=== PATIENT | female | born 1960 | race Hispanic/Latino ===

== ENCOUNTER 2017-11-28 12:31 | Outpatient (CLI) | payer OTHER ==
--- NOTE | 2017-11-28 13:15 | XRay Report ---
CHEST 2 VIEWS INDICATION: Chest pain. COMPARISON: None similar at this institution. FINDINGS: PA and lateral chest radiographs demonstrate normal cardiomediastinal silhouette. Clear lungs. Multilevel thoracic spine degenerative spurring and lower cervical fusion hardware. Probable cholecystectomy clips. CONCLUSION: No acute chest process with other findings, as above. Thank you for the opportunity to participate in this patient's care.
--- NOTE | 2017-11-28 14:05 | XRay Report ---
RIB RADIOGRAPHS UNILATERAL - LEFT INDICATION: Intercostal pain. COMPARISON: None similar. FINDINGS: AP and oblique radiographs to evaluate left ribs, 3 projections demonstrate no definite or significantly displaced left rib fracture. Probable cholecystectomy clips. Lower cervical fusion hardware. Mild multilevel thoracic spine degenerative spurring. Mild dextroscoliosis apex about T7 as well. CONCLUSION: No acute left rib radiographic abnormality with various other findings, as described. Please note that some acute rib fractures may be radiographically occult. Thank you for the opportunity to participate in this patient's care.
== END 2017-11-28 12:32 | disposition home or self-care (01) ==
LOC: XRAY 12:31
PROVIDERS: ATTEND Internal Medicine
DX: R07.82 Intercostal pain (principal); R07.9 Chest pain, unspecified; M41.84 Other forms of scoliosis, thoracic region; M43.22 Fusion of spine, cervical region; M53.84 Other specified dorsopathies, thoracic region
CPT/HCPCS: 71046

== ENCOUNTER 2017-12-12 10:28 | Outpatient (CLI) | payer OTHER ==
--- NOTE | 2017-12-12 16:08 | Mammography Report ---
BONE DEXA:12/12/17 10:28:00 CLINICAL: Postmenopausal. No comparison. TECHNIQUE: Two site bone DEXA performed on an Hologic scanner. FINDINGS: The average BMD of the lumbar spine L1-L4 is 0.970g/cm squared with a T-score of by 0.7 and a Z-score of +0.6. The average BMD of the left hip is 1.160g/cm squared with a T-score of +1.8 and a Z-score of +2.6. IMPRESSION: WHO classification: Normal with average fracture risk based on both lumbar spine and left hip measurements. RECOMMENDATION: Clinical correlation and routine screening. DEFINITIONS: BMD = Bone Mineral Density T-score = BMD related to mean peak bone mass of young adult (mean expressed in Standard Deviation) Z-score = Age matched BMD expressed in SD World Health Organization (WHO) Diagnostic Criteria Normal T-score > -1 SD Osteopenia T-score between -1 and -2.4 SD Osteoporosis T-score -2.5 SD or below NOTE: BMD is not the only risk factor for fracture. One should also consider factors such as the patient's age, risk of falling, previous osteoporotic fracture, family history of osteoporotic fractures, current smoker, and low body weight. Z-scores are not calculated if >80 years of age.
--- NOTE | 2017-12-12 16:19 | Mammography Report ---
BILATERAL DIGITAL SCREENING MAMMOGRAM with CAD: 12/12/17 10:28:00 CLINICAL: Routine screening. COMPARISON:None available. FINDINGS: The breasts are almost entirely fatty. No mass, architectural distortion or suspicious calcifications. IMPRESSION: No mammographic evidence of malignancy. BI-RADS CATEGORY: 1 - - Negative RECOMMENDATION: Routine mammographic screening in one year. COMMENT: Patient follow-up letters are generated by our [employer] application.
== END 2017-12-12 10:29 | disposition home or self-care (01) ==
LOC: MAMMO 10:28
PROVIDERS: ATTEND Internal Medicine
DX: Z12.31 Encounter for screening mammogram for malignant neoplasm of breast (principal); M81.8 Other osteoporosis without current pathological fracture; Z78.0 Asymptomatic menopausal state
CPT/HCPCS: 77067; 77080

== ENCOUNTER 2018-07-25 15:02 | Emergency (ER) | payer OTHER ==
[2018-07-25 16:59] LABS: Basophils % (Auto) 0.8 % (0.0-1.8); Eosinophils # (Auto) 0.1 K/mm3 (0.0-0.4); Eosinophils % (Auto) 1.9 % (0.0-4.3); Hematocrit 39.9 % (30.3-42.9); Hemoglobin 13.5 gm/dl (10.1-14.3); Lymphocytes # (Auto) 2.5 K/mm3 (1.2-5.4); Mean Corpuscular HGB Conc 34 % (30-34); Mean Corpuscular Hemoglobin 30 pg (28-32); Mean Corpuscular Volume 89 fl (79-97); Monocytes # (Auto) 0.4 K/mm3 (0.0-0.8); Monocytes % (Auto) 6.3 % (0.0-7.3); Platelet Count 344 K/mm3 (140-440); Red Blood Count 4.48 M/mm3 (3.65-5.03); Red Cell Distribution Width 13.4 % (13.2-15.2)
[2018-07-25 17:07] LABS: BUN/Creatinine Ratio 23; Blood Urea Nitrogen 18 mg/dL (7-17); Calcium 9.7 mg/dL (8.4-10.2); Hemolysis Index 6
[2018-07-25] MEDS ORDERED: MORPHINE IV ONE (18:29)
--- NOTE | 2018-07-25 18:36 | Emergency Department Report ---
Blank Doc - Documentation Documentation: 57-year-old female presents to ER with right-sided chest pain since yesterday. Patient states has been having pain in his left leg for several weeks now. He was given a prescription for tramadol for pain by PCP without improvement of pain. He states began having back pain that wraps around right chest on yesterday. Reports pleuritic pain and mild shortness of breath. Patient has not had ultrasound of lower extremity. Patient does not appear to be in any distress. EKG unremarkable. Patient not tachycardic or hypoxic. He is clear. No obvious swelling to his lower extremities. Wiill check labs, lower extremity ultrasound, and CTA of the chest.
--- NOTE | 2018-07-25 19:13 | XRay Report ---
FINAL REPORT EXAM: XR CHEST ROUTINE 2V HISTORY: chest pain COMPARISON: None available. FINDINGS:: Frontal and lateral views of the chest obtained. Cardiac silhouette is within normal limits. No focal consolidation or effusion. No pneumothorax. Prior anterior fusion of the cervical spine. IMPRESSION:: No acute findings.
[2018-07-25 19:57] VITALS: BP 144/68
--- NOTE | 2018-07-25 20:42 | Cat Scan Report ---
FINAL REPORT EXAM: CT ANGIO CHEST HISTORY: right chest pain COMPARISON: Chest x-ray from the same date. TECHNIQUE: Contiguous axial images were obtained. Additional sagittal and coronal reformatted images were obtained. Administration of IV contrast given per institution protocol. Images submitted for interpretation. Max intensity projection images. FINDINGS: Heart borderline enlarged. Thoracic aorta normal in caliber. No acute dissection or rupture of the thoracic aorta. No pulmonary embolus. No pathologically enlarged intrathoracic or axillary lymph nodes. Minimal linear atelectasis at the lung bases. No dense consolidation or pleural effusion. Prior cholecystectomy. Liver is mildly enlarged measuring 25 centimeters. [id number] degenerative changes of the thoracic spine. IMPRESSION: No pulmonary embolus. No focal consolidation or pleural effusion.
--- NOTE | 2018-07-25 21:01 | Emergency Department Report ---
ED General Adult HPI - General Chief complaint: Pain General Stated complaint: BACK AND LEG PAIN/CHEST PAIN Time Seen by Provider: 07/25/18 18:12 Source: patient Mode of arrival: Ambulatory Limitations: Physical Limitation - History of Present Illness Initial comments: [id number] female presents to ER with right-sided chest pain since yesterday. Patient states has been having pain in his left leg for several weeks now. He was given a prescription for tramadol for pain by PCP without improvement of pain. He states began having back pain that wraps around right chest on yesterday. Reports pleuritic pain and mild shortness of breath. Patient has not had ultrasound of lower extremity. Patient does not appear to be in any distress. EKG unremarkable. Patient not tachycardic or hypoxic. He is clear. No obvious swelling to his lower extremities. Wiill check labs, lower extremity ultrasound, and CTA of the chest. Onset/Timin -: week(s) Location: lower extremity Severity scale (0 -10): 5 Quality: sharp ( O for nausea is 12) Consistency: intermittent ( is) Improves with: rest Worsens with: movement, other (activity bone) Associated Symptoms: other (leg pain left ) Treatments Prior to Arrival: NSAID - Related Data Previous Rx's Medication Instructions Recorded Last Taken Type Indomethacin [Indocin] 25 mg PO Q8H PRN #30 capsule 07/25/18 Unknown Rx Allergies Allergy/AdvReac Type Severity Reaction Status Date / Time acetaminophen [From Percocet] Allergy Itching Unverified 11/28/17 12:32 butalbital [From Fioricet] Allergy Swelling Unverified 11/28/17 12:32 caffeine [From Fioricet] Allergy Swelling Unverified 11/28/17 12:32 oxycodone [From Percocet] Allergy Itching Unverified 11/28/17 12:32 ED Review of Systems ROS: Stated complaint: BACK AND LEG PAIN/CHEST PAIN Other details as noted in HPI Constitutional: denies: chills, fever Eyes: denies: eye pain, eye discharge, vision change ENT: denies: ear pain, throat pain Respiratory: denies: cough, shortness of breath, wheezing Cardiovascular: denies: chest pain, palpitations, dyspnea on exertion, edema, syncope, paroxysmal nocturnal dyspnea Endocrine: no symptoms reported Gastrointestinal: denies: abdominal pain, nausea, vomiting, diarrhea, constipation, hematemesis, hematochezia Genitourinary: denies: urgency, dysuria, frequency, hematuria, discharge, abnormal menses, dyspareunia Musculoskeletal: denies: back pain, joint swelling, arthralgia, myalgia Skin: denies: rash, lesions, change in color, pruritus Neurological: denies: headache, weakness, numbness, paresthesias, confusion, abnormal gait, vertigo Psychiatric: anxiety. denies: depression, auditory hallucinations (admit), visual hallucinations, homicidal thoughts, suicidal thoughts Hematological/Lymphatic: denies: easy bleeding, easy bruising ED Past Medical Hx - Past Medical History Hx Diabetes: Yes Hx Arthritis: Yes Hx Psychiatric Treatment: Yes (bipolar) - Surgical History Past Surgical History?: Yes Hx Cholecystectomy: Yes (2004) Additional Surgical History: ACDF (2012) bladder sling (2007), multiple eye surgeries - Social History Smoking Status: Never Smoker Substance Use Type: Alcohol - Medications Home Medications: Home Medications Medication Instructions Recorded Confirmed Last Taken Type Indomethacin [Indocin] 25 mg PO Q8H PRN #30 capsule 07/25/18 Unknown Rx ED Physical Exam - General Limitations: Physical Limitation General appearance: alert, in no apparent distress - Head Head exam: Present: atraumatic, normocephalic, normal inspection - Eye Eye exam: Present: normal appearance, PERRL, EOMI (panel) - ENT ENT exam: Present: normal exam, normal orophraynx, mucous membranes dry (no of) , mucous membranes moist, TM's normal bilaterally, normal external ear exam - Neck Neck exam: Present: normal inspection (is), full ROM. Absent: tenderness, meningismus, lymphadenopathy, thyromegaly - Respiratory Respiratory exam: Present: normal lung sounds bilaterally. Absent: respiratory distress, wheezes (well-rounded), stridor, chest wall tenderness - Cardiovascular Cardiovascular Exam: Present: regular rate, normal rhythm. Absent: normal heart sounds, systolic murmur, diastolic murmur, rubs, gallop - GI/Abdominal GI/Abdominal exam: Present: soft (thousand 5), normal bowel sounds. Absent: tenderness (I), bruit, hernia - Rectal Rectal exam: Present: deferred - External exam: Present: normal external exam - Extremities Exam Extremities exam: Present: full ROM, tenderness (left medial thigh pain tenderness ), normal capillary refill. Absent: pedal edema, joint swelling, calf tenderness - Back Exam Back exam: Present: normal inspection (ago), tenderness. Absent: full ROM, CVA tenderness (R), CVA tenderness (L), muscle spasm, paraspinal tenderness, vertebral tenderness, rash noted (this) - Neurological Exam Neurological exam: Present: alert, oriented X3, normal gait. Absent: CN II-XII intact ( is 5 IV site), motor sensory deficit, reflexes normal - Psychiatric Psychiatric exam: Present: normal affect (summary given), normal mood - Skin Skin exam: Present: warm, dry, intact, normal color. Absent: rash ED Course Vital Signs 07/25/18 07/25/18 07/25/18 15:43 19:17 19:56 Temperature 98.6 F 98.7 F Pulse Rate 71 76 Respiratory 18 18 16 Rate Blood Pressure 169/63 Blood Pressure 144/68 [Left] O2 Sat by Pulse 98 97 Oximetry ED Medical Decision Making - Lab Data Result diagrams: 07/25/18 16:49 07/25/18 16:49 Laboratory Tests 07/25/18 07/25/18 07/25/18 16:49 16:49 18:36 WBC 6.3 RBC 4.48 Hgb 13.5 Hct 39.9 MCV 89 MCH 30 MCHC 34 RDW 13.4 Plt Count 344 Lymph % (Auto) 39.0 H [place] % (Auto) 6.3 Eos % (Auto) 1.9 Baso % (Auto) 0.8 Lymph # 2.5 [place] # 0.4 Eos # 0.1 Baso # 0.0 Seg Neutrophils % 52.0 Seg Neutrophils # 3.3 Sodium 142 Potassium 4.3 Chloride 100.6 Carbon Dioxide 28 Anion Gap 18 BUN 18 H Creatinine 0.8 Estimated GFR > 60 BUN/Creatinine Ratio 23 Glucose 202 H Calcium 9.7 Troponin T < 0.010 < 0.010 - Radiology Data Radiology results: report reviewed, image reviewed Chest x-ray and CTA heart: Normal no infiltrates no opacities no PE noted on CTA - Medical Decision Making Chest x-ray CCA all labs are normal including d-dimer plan DC home patient will return to a.m. for CV venous Doppler left lower extremity to rule out DVT patient has prescription for tramadol S prescribed by her PCP advised to take current medication as prescribed patient verbalizes agreement and understanding the same will return in a.m. for venous Doppler study currently patient is an O 3 and rheumatoid gait is steady with no acute distress Critical care attestation.: If time is entered above; I have spent that time in minutes in the direct care of this critically ill patient, excluding procedure time. ED Disposition Clinical Impression: Musculoskeletal pain of left lower extremity Disposition: - TO HOME OR SELFCARE Is pt being admited?: No Does the pt Need Aspirin: No (there) Condition: Stable Prescriptions: Indomethacin [Indocin] 25 mg PO Q8H PRN #30 capsule PRN Reason: Pain , Severe (7-10) Referrals: PRIMARY CARE, [Primary Care Provider] - 3-5 Days Forms: Work/School Release Form(ED) Time of Disposition: 21:13
[2018-07-25] MEDS ORDERED: ULTRAM PO ONE (21:05)
== END 2018-07-25 21:27 | disposition home or self-care (01) ==
LOC: ED 15:02
DX: M79.662 Pain in left lower leg (principal); E11.9 Type 2 diabetes mellitus without complications; M19.90 Unspecified osteoarthritis, unspecified site; F31.9 Bipolar disorder, unspecified; Z90.49 Acquired absence of other specified parts of digestive tract; Z88.5 Allergy status to narcotic agent; Z88.8 Allergy status to other drugs, medicaments and biological substances
CPT/HCPCS: 36415; 71046; 71275; 80048; 84484; 85025; 93005; 93010; 96374; 99284; J2270; Q9967